=== PATIENT | female | born 1965 | race Caucasian/White ===

== ENCOUNTER 2019-06-03 14:45 | Emergency (ER) | payer OTHER ==
[~2019-06-03] VITALS: Ht 170.2 cm; Wt 95.5 kg
[2019-06-03] MEDS ORDERED: IBUP80TA PO (14:50)
[2019-06-03] MEDS ORDERED: NORC1TAB7 PO ×2 (14:50→16:36)
[2019-06-03] MEDS ORDERED: PROZ20CA11 PO (14:50)
[2019-06-03 17:23] VITALS: BP 168/88
--- NOTE | 2019-06-05 16:43 | REP ---
Left ribs for views: I suspect a nondisplaced left seventh rib fracture anterolaterally on one-view. This should be correlated with clinical point tenderness. No other rib fractures or rib abnormalities are identified. PA chest: There is no pneumothorax, hemothorax or pulmonary contusion. The lung colvin are clear. Cardiac size is normal. The ester, mediastinum, skeletal structures are unremarkable. Impression: Negative PA chest. Electronically Signed by Javi Roman MD 06/03/2019 04:12 P
--- NOTE | 2019-06-05 16:44 | REP ---
Left wrist four views: There is question of a nondisplaced scaphoid fracture. If there is clinical point tenderness, consider CT for confirmation. Otherwise, mineralization joint spaces are normal. There is no other fracture. There are no calcifications or foreign bodies. Impression: Questionable scaphoid nondisplaced fracture. If there is clinical point tenderness, consider CT for confirmation. Electronically Signed by Javi Roman MD 06/03/2019 04:13 P
== END 2019-06-03 17:28 | disposition home or self-care (01) ==
LOC: M ED 14:45
DX: S62.002A Unspecified fracture of navicular [scaphoid] bone of left wrist, initial encounter for closed fracture (principal); W01.0XXA Fall on same level from slipping, tripping and stumbling without subsequent striking against object, initial encounter; Y92.099 Unspecified place in other non-institutional residence as the place of occurrence of the external cause; Y93.9 Activity, unspecified; Y99.9 Unspecified external cause status; Z72.0 Tobacco use; Z79.899 Other long term (current) drug therapy